=== PATIENT | male | born 2000 | race Hispanic/Latino ===

== ENCOUNTER 2021-08-14 10:16 | Emergency (ER) | payer SELFPAY ==
--- NOTE | 2021-08-14 11:12 | ER ---
Nurse's Notes [facility] Name: Baltazar Reyes Age: 20 yrs Sex: Male : 2000 Arrival Date: 08/14/2021 Time: 10:19 Bed 10 Private MD: Diagnosis: Localized swelling, mass and lump, neck Presentation: 08/14 10:36 Chief complaint: Patient states: has a cyst on right jaw X 1 year, has gotten bigger iw over past year , was told it's a lymph node, now is having pain in neck with it , ia having migraines also. Coronavirus screen: At this time, the client does not indicate any symptoms associated with coronavirus-19. Ebola Screen: Patient negative for fever greater than or equal to 101.5 degrees Fahrenheit, and additional compatible Ebola Virus Disease symptoms Patient denies exposure to infectious person. Patient denies travel to an Ebola-affected area in the 21 days before illness onset. No symptoms or risks identified at this time. Initial Sepsis Screen: Does the patient meet any 2 criteria? No. Patient's initial sepsis screen is negative. Does the patient have a suspected source of infection? No. Patient's initial sepsis screen is negative. Risk Assessment: Do you want to hurt yourself or someone else? Patient reports no desire to harm self or others. Onset of symptoms was August 14, 2021. 10:36 Method Of Arrival: Ambulatory iw 10:36 Acuity: SIGIFREDO 4 iw Historical: - Allergies: 10:39 No Known Allergies; iw - Home Meds: 10:39 None [Active]; iw - PMHx: 10:39 None; iw - PSHx: 10:39 None; iw Vital Signs: 10:36 BP 110 / 76; Pulse 74; Resp 16; Pulse Ox 100% on R/A; iw ED Course: 10:19 Patient arrived in ED. am2 10:35 Smith Hines NP is PHCP. pm1 10:35 Gomez Kaur MD is Attending Physician. pm1 10:39 Triage completed. iw 10:39 Arm band placed on. iw 10:40 Suzy Reynolds, RN is Primary Nurse. iw Administered Medications: No medications were administered Outcome: 11:12 Discharge ordered by . pm1 11:17 Patient left the ED. tm3 Signatures: Leonardo Hinson tm3 Suzy Reynolds, RN RN iw Smith Hines, CONSOLIDATION ACCOUNTANT CONSOLIDATION ACCOUNTANT pm1 Dianne Sabillon am2
--- NOTE | 2021-08-14 11:12 | EDPHYS ---
Physician Documentation [facility] Name: Baltazar Reyes Age: 20 yrs Sex: Male : 2000 Arrival Date: 08/14/2021 Time: 10:19 Bed 10 Private MD: ED Physician Gomez Kaur HPI: 08/14 11:11 This 20 yrs old Male presents to ER via Ambulatory with complaints of Neck pm1 Pain, >24Hrs Old, Neck Swelling. 11:11 The patient or guardian complains of Right sided mass to neck present for 1 year. The pm1 symptoms are located Right side of neck. Onset: The symptoms/episode began/occurred 1 year(s) ago. Context: The neck injury/problem resulted from Unknown but based on biopsy by Dr. Lau 6 to 7 months ago it is a swollen lymph node. 11:11 Associated signs and symptoms: Pertinent positives: headache. Severity of symptoms: in pm1 the emergency department the symptoms are actually worse. The patient has not recently seen a physician. 20-year-old male presents to the ER with complaints of right sided neck mass that has been present for 1 year. Patient has been evaluated for the mass by Dr. Morales about 6 to 7 months ago. A biopsy was performed and apparently it is a swollen lymph node according to the patient. A CT of the neck was ordered for definitive treatment, surgery. However the patient did not follow-up and get a CT and has not been reevaluated by Dr. Morales again. Patient is presenting to the ER today due to increase in the size of the mass. Historical: - Allergies: 10:39 No Known Allergies; iw - Home Meds: 10:39 None [Active]; iw - PMHx: 10:39 None; iw - PSHx: 10:39 None; iw ROS: 11:11 Constitutional: Negative for fever, chills, and weight loss. pm1 11:11 Cardiovascular: Negative for chest pain, palpitations, and edema, Respiratory: Negative for shortness of breath, cough, wheezing, and pleuritic chest pain, Back: Negative for injury and pain, MS/Extremity: Negative for injury and deformity, Skin: Negative for injury, rash, and discoloration. 11:11 Neck: Positive for Mass to right side of neck. 11:11 Neuro: Positive for headache, Negative for numbness, tingling. 11:11 All other systems are negative. Exam: 11:11 Constitutional: This is a well developed, well nourished patient who is awake, alert, pm1 and in no acute distress. Head/Face: Normocephalic, atraumatic. 11:11 Skin: Warm, dry with normal turgor. Normal color with no rashes, no lesions, and no evidence of cellulitis. MS/ Extremity: Pulses equal, no cyanosis. Neurovascular intact. Full, normal range of motion. 11:11 Eyes: Exam is negative for acute changes, Periorbital structures: appear normal, Pupils: no acute changes, Sclera: no acute changes. 11:11 ENT: Exam is negative for acute changes, Mouth: no acute changes, Lips: normal, moist, Oral mucosa: normal, pink and intact, moist, Voice: no acute changes. 11:11 Neck: External neck: mass, that is large, of the right anterior aspect of neck below right mandible, that is not tender to palpation, Trachea: no acute changes, Negative for deviation . ROM/movement: no acute changes, pain, is not appreciated. 11:11 Cardiovascular: Exam negative for acute changes, Rate: normal, Rhythm: regular, Pulses: no pulse deficits are appreciated. 11:11 Respiratory: Exam negative for acute changes, respiratory distress, shortness of breath, Breath sounds: are clear throughout, stridor, is not appreciated. 11:11 Neuro: Exam negative for acute changes, Orientation: is normal, Mentation: is normal, Motor: moves all fours. Vital Signs: 10:36 BP 110 / 76; Pulse 74; Resp 16; Pulse Ox 100% on R/A; iw MDM: 10:40 Patient medically screened. pm1 11:11 Data reviewed: vital signs. Data interpreted: Pulse oximetry: on room air is 100 %. pm1 Interpretation: normal. Counseling: I had a detailed discussion with the patient and/or guardian regarding: the historical points, exam findings, and any diagnostic results supporting the discharge/admit diagnosis, the need for outpatient follow up, an ENT specialist, a plastic surgeon, to return to the emergency department if symptoms worsen or persist or if there are any questions or concerns that arise at home. 11:11 ED course: Offered the patient CT examination in the ER. Patient and mother elected to pm1 follow up with ENT and get outpatient CT. Empathized with patient and shared my history of right sided neck mass/thyroglossal duct cyst and his need to get further treatment and definitive treatment with ENT. Administered Medications: No medications were administered Disposition Summary: 08/14/21 11:12 Discharge Ordered Location: Home pm1 Problem: new pm1 Symptoms: are unchanged pm1 Condition: Stable pm1 Diagnosis - Localized swelling, mass and lump, neck pm1 Followup: pm1 - With: Emergency Department - When: As needed - Reason: Worsening of condition Followup: pm1 - With: Private Physician - When: 2 - 3 days - Reason: Recheck today's complaints, Continuance of care, Re-evaluation by your physician Discharge Instructions: - Discharge Summary Sheet pm1 Forms: - Medication Reconciliation Form pm1 - Thank You Letter pm1 - Antibiotic Education pm1 - Prescription Opioid Use pm1 Signatures: Suzy Reynolds RN RN iw Smith Hines NP SPEECH THERAPY ASSISTANT pm1
[2021-08-14 11:19] VITALS: BP 110/76; O2SAT 100
== END 2021-08-14 11:17 | disposition home or self-care (01) ==
LOC: ER 10:16
DX: R22.1 Localized swelling, mass and lump, neck (principal); R51.9 Headache, unspecified
CPT/HCPCS: 99281